=== PATIENT | female | born 1990 | race Caucasian/White ===

== ENCOUNTER 2023-04-22 09:47 | Inpatient (IN) ==
[2023-04-22] MEDS ORDERED: LIDOCAINE 1% LOCAL 20 ML VIAL INFIL PRN (10:49)
[2023-04-22] MEDS ORDERED: OXYTOCIN 30 UNITS/NSS 30 UNITS/500 ML BAG IV PRN (10:49)
--- NOTE | 2023-04-22 10:52 | History & Physical Report ---
Date of Service April 22, 2023 Assessment & Plan (1) Delayed delivery after SROM (spontaneous rupture of membranes): (2) with 39 completed weeks gestation: Plan term , prolonged rom--must assume she has been ruptured since 5pm last night. admit. Recommend commence with pitocin as rom x 18 hours. She is agreeable. The longer ruptured and not delivered, the higher the risk of infection. Fetus category one. epidural on demand. anticipate . History of Present Illness Chief Complaint: lof Primary Care Provider: Emilie Queen DO Patient is a 33yowf with iup at 39 0/7 weeks. She noted that she thinks she started leaking last night around 5pm, just felt wet, intermittent small gush. Notes much larger gushes this am, awoke with soaked underwear. Has not really noted contractions. No vb. +fm. Patient admits that she is anxious. her bp is a little elevated on admission. She denies s/s of pet at present. and Delivery Plans h/o infertility *conceived spontaneously OB Labs: Blood Type O Positive 09/18/22 Antibody Screen NEGATIVE 09/18/22 Hemoglobin 12.4 g/dl (12.0-16.0) 02/05/23 Hematocrit 36.2 % (37.0-47.0) L 02/05/23 Mean Corpuscular Volume 93.5 fL (80.0-100.0) 09/18/22 Platelet Count 248 K/uL (130-400) 09/18/22 Varicella-Zoster IgG Antibody 1994.00 index 03/19/22 Rubella IgG Antibody Immune (Immune) 09/18/22 Rapid Plasma Reagin Nonreactive (Nonreactive) 09/18/22 Hepatitis B Surface Antigen. NON-REACTIVE (NON-REACTIVE) 09/18/22 Hepatitis C Antibody (EIA) NON-REACTIVE (NON-REACTIVE) 09/18/22 HIV (1&2) Ag and Ab Confirmation NON-REACTIVE (NON-REACTIVE) 09/18/22 Glucose 1 Hour 50 gm Load 100 mg/dl (70-130) 02/05/23 Maternal Serum Alpha Fetoprotein 32.9 ng/mL 11/13/22 OB Optional Labs: Chlamydia trachomatis RNA Not Detected (NotDetected) 09/18/22 Neisseria gonorrhoeae RNA Not Detected (NotDetected) 09/18/22 Thyroid Stimulating Hormone (TSH) 2.14 uIU/mL (0.30-4.50) 10/21/21 Alpha Fetoprotein Triple Screen SEE NOTE 11/13/22 Labs Reviewed: Horizon 14-negative--mln cfdna-low risk--mln neg afp--akh gbs neg Allergies Allergy/AdvReac Type Severity Reaction Status Date / Time No Known Allergies Allergy Verified 04/16/23 08:51 Home Medications Medication Instructions Recorded Confirmed Type 21-iron fu-folic acid PO 09/11/22 04/16/23 History [ Complete] RSV vac, preF A and preF B(PF) 120 0.5 ml IM ONCE #1 ea 03/09/23 04/16/23 Rx mcg/0.5 mL IM solution (Abrysvo) Patient History Medical History Human papilloma virus Mild dysplasia of cervix (SUSI I) Cat scratch fever History of chicken pox Surgical History S/P lymph node biopsy r/t cat scratch fever S/P wisdom tooth extraction S/P inguinal hernia repair x2 Family History Aunt Breast cancer Other Prostate cancer Denies family history of Ovarian cancer Myocardial infarction Colorectal cancer Social History Smoking Status: Never smoker Second Hand Exposure: No; Do You Dip or Chew Tobacco: No; Hx Alcohol Use: No Hx Substance Use: No Preferred Language: Brazilian Communication Ability: Effective Courtroom Deputy Required: No Beliefs That Will Affect Care: None marital status: marital status details: Delano Sherwood (45) [phone] Current Living Situation: Spouse Current Living Situation Comment: lives with spouse, dogs current occupational status: employed current occupation: [employer] Other Information That Helps Us Care for You: No Feels Safe at Home: Yes Safety Concerns: Feels Safe At This Time Childhood Exposure to Second-Hand Smoke: No Dental Care, Regularly: Yes Physical Activity Frequency: 5-6 Times per Week Seatbelt Use: always Sunscreen Use: Yes Assistive Devices: None OB History g1--present [employer] History noncontributory Physical Exam Constitutional: WD/WN, vitals as above Gastrointestinal (Abdomen): soft, nt, nd, gravid, no ruq pain Psychiatric: A+Ox3, euthymic affect Genitourinary: sse--grossly ruptured, clear fluid cx--1+/50/-2/mid/mod toco--occasional contraction efm--130s with mod variability, accels to 170s, no decels Results & Data Vital Signs (Past 12 Hours) Vital Signs Temp Pulse Resp BP 04/22/23 10:44 82 141/92 H 04/22/23 10:36 83 136/92 04/22/23 10:14 93 H 137/95 04/22/23 10:02 37.3 C 78 16 142/90 H 04/22/23 09:58 78 142/90 H Coding Level of Care Code None Diagnoses Delayed delivery after SROM (spontaneous rupture of membranes) O42.90 with 39 completed weeks gestation Z3A.39
[2023-04-22] MEDS: LACTATED RINGER'S 1,000 ML IV PRN (11:25)
[2023-04-22 11:53] LABS: Hematocrit (blood only) 38.5 % (37.0-47.0); Mean Corpuscular Hemoglobin 31.1 pg (25.0-34.0); Mean Corpuscular Hgb Conc 33.8 g/dL (32.0-36.0); Mean Corpuscular Volume 92.1 fL (80.0-100.0); Mean Platelet Volume 13.5 fL (9.4-12.4); Platelet Count 134 K/uL (130-400); RDW Standard Deviation 43.4 fL (36.4-46.3); Red Blood Count 4.18 M/uL (4.20-5.40); White Blood Count 6.69 K/ul (4.8-10.8)
[2023-04-22] MEDS: OXYTOCIN 30 UNITS/NSS 30 UNITS/500 ML BAG IV PRN (11:57)
[2023-04-22 12:06] LABS: Albumin Globulin Ratio 1.2 (0.9-2); Albumin Level 3.6 gm/dl (3.4-5.0); BUN Creatinine Ratio 11.8 (10-20); Bilirubin,Total 0.4 mg/dl (0.2-1.0); Calcium 8.9 mg/dl (8.6-10.3); Creatinine Clr Calc Pharmacy 95.1 ml/min; Est GFR (African American) 93.6 ml/min; Est GFR (Non-African American) 80.8 ml/min; Globulin 3.1 gm/dl (2.5-4.0); Potassium 4.2 mmol/L (3.5-5.1); Total Protein 6.7 gm/dl (6.0-8.3)
--- NOTE | 2023-04-22 21:28 | Labor Progress Brief Note ---
Date of Service April 22, 2023 Subjective Getting uncomfortable with contractions. rectal pressure Assessment & Plan (1) with 39 completed weeks gestation: (2) Delayed delivery after SROM (spontaneous rupture of membranes): Plan will get epidural and arom. fetus category one. Admission and Anticipated Discharge Date Admission Date: April 22, 2023 Physical Exam Physical Exam: cx--4/100/-1 toco--q2-3min, pit at 20 efm--125 with mod variabilty, accels to 160s, no decels Results & Data Vital Signs (Past 12 Hours) Vital Signs Temp Pulse Resp BP 04/22/23 21:04 76 18 144/87 H 04/22/23 20:01 66 18 158/84 H 04/22/23 19:07 36.6 C 64 18 143/88 H 04/22/23 18:00 36.6 C 04/22/23 18:00 36.6 C 04/22/23 18:00 62 141/87 H 04/22/23 17:59 64 152/94 H 04/22/23 17:00 73 121/77 04/22/23 16:00 36.7 C 04/22/23 16:00 18 04/22/23 16:00 36.7 C 18 04/22/23 16:00 18 04/22/23 16:00 36.7 C 18 04/22/23 15:59 81 133/87 04/22/23 14:59 74 141/88 H 04/22/23 14:01 70 142/86 H 04/22/23 14:00 37.0 C 04/22/23 13:17 73 136/85 04/22/23 12:03 36.5 C 76 135/85 04/22/23 10:44 82 141/92 H 04/22/23 10:36 83 136/92 04/22/23 10:14 93 H 137/95 04/22/23 10:02 37.3 C 78 16 142/90 H 04/22/23 09:58 78 142/90 H Coding Level of Care Code None Diagnoses with 39 completed weeks gestation Z3A.39 Delayed delivery after SROM (spontaneous rupture of membranes) O42.90
--- NOTE | 2023-04-22 21:55 | Anesthesiology Consultation ---
Date of Service April 22, 2023 Assessment & Plan Chart Review Chart Review: Patient NOT seen in Pre Admission Testing and Acceptable Risk for Labor Epidural Consults Requested none ASA ASA2 Proposed Anesthesia Anesthesia Type: Labor Epidural Risk / Benefits Reviewed With: PT / POA / Parent / Guardian, Accepts Plan and Informed Consent Obtained History Height/Weight Height: 5 ft 7 in Weight: 82.554 kg Allergies Allergy/AdvReac Type Severity Reaction Status Date / Time No Known Allergies Allergy Verified 04/16/23 08:51 Medications Home Medications Medication Instructions Recorded Confirmed Last Taken vits no.124-ferrous fum 1 tab PO DAILY 04/22/23 04/22/23 Unknown 27 mg iron-folic acid 800 mcg tablet ( Vitamin) Active Medications Generic Name Dose Route Start Last Admin Trade Name Freq PRN Reason Stop Dose Admin Lactated Ringer's 1,000 mls @ 125 mls/hr 04/22/23 10:49 04/22/23 21:25 Lr IV 04/24/23 10:48 999 mls/hr .Q8H PRN Infusion L&D Protocol Protocol Oxytocin 30 units in 500 mls @ 20 mls/hr 04/22/23 10:57 04/22/23 19:40 Pitocin 30 Units/Nss IV 04/24/23 10:56 1.2 units/hr .Q24H PRN 20 mls/hr Labor Induction/Augmentation Titration Protocol 1.2 UNITS/HR NPO Date Last Intake of Fluids: 04/22/23 Time Last Intake of Fluids: 21:00 Date Last Intake of Solids: 04/22/23 Time Last Intake of Solids: 15:00 Past Medical History Medical History Human papilloma virus Mild dysplasia of cervix (SUSI I) Cat scratch fever History of chicken pox Exercise / Class Metabolic Activity II 4-5 Yardwork/Stairs/Walk up hill Past Family History Family History Aunt Breast cancer Other Prostate cancer Denies family history of Ovarian cancer Myocardial infarction Colorectal cancer Past Surgical History Surgical History S/P lymph node biopsy r/t cat scratch fever S/P wisdom tooth extraction S/P inguinal hernia repair x2 Past Anesthesia History No Hx of Anesthesia Complications and No Family Hx of Anesthesia Complications Social History Smoking Status: Never smoker Do You Dip or Chew Tobacco: No Hx Alcohol Use: No Hx Substance Use: No Review of Systems ROS Unobtainable: All systems reviewed & are unremarkable except as noted in HPI & below Physical Exam Vital Signs Last Vital Signs Temp 36.6 C 04/22/23 19:07 Pulse 76 04/22/23 21:04 Resp 18 04/22/23 21:04 BP 144/87 H 04/22/23 21:04 ENMT Mouth: no TMJ abnormality Thyromental Distance: > or= 3.5 Finger Breadths Mallampati Class: II Neck normal visual inspection and trachea midline; neck extension not limited Respiratory normal respiratory effort Auscultation: lungs clear to auscultation bilaterally Cardiovascular Rate/Rhythm: regular rate and regular rhythm Heart Sounds: no murmur Musculoskeletal Spine: normal cervical ROM Extremities: full ROM of extremities Neurologic moves all extremities Psychiatric Orientation: alert and oriented x 3 Testing Laboratory Results 04/22/23 11:17 04/22/23 11:17
[2023-04-22] MEDS: BUPIVACAINE 0.25% PF 30 ML VIAL ONE (22:10)
[2023-04-22] MEDS: fentANYL 2 MCG/ML BUPIVacaine 0.125%-NSS 100ML BAG ONE (22:10)
[2023-04-22] MEDS: LIDOCAINE 2%/EPINEPHRINE 1:200,000 20 ML PF ONE (22:10)
[2023-04-22] MEDS: fentaNYL citrate PF 100 MCG/2 ML VIAL ONE (22:12)
[2023-04-22] MEDS ORDERED: NALOXONE HCL 0.4 MG/1 ML VIAL/CARP IV PRN (22:17)
[2023-04-22] MEDS ORDERED: SODIUM CHLORIDE 0.9% PF INJ 10 ML VIAL EPI STA (22:17)
[2023-04-22] MEDS ORDERED: LIDOCAINE 2% MPF LOCAL 5 ML VIAL EPI PRN (22:17)
[2023-04-22] MEDS ORDERED: fentaNYL citrate PF 100 MCG/2 ML VIAL EPI PRN (22:17)
[2023-04-22] MEDS ORDERED: LIDOCAINE 2%/EPINEPHRINE 1:200,000 20 ML PF EPI STA (22:17)
[2023-04-22] MEDS ORDERED: BUPIVACAINE 0.25% PF 30 ML VIAL EPI PRN (22:17)
[2023-04-22] MEDS ORDERED: SODIUM CHLORIDE 0.9% PF INJ 10 ML VIAL EPI PRN (22:17)
[2023-04-22] MEDS ORDERED: fentaNYL citrate PF 100 MCG/2 ML VIAL EPI STA (22:17)
[2023-04-22] MEDS ORDERED: ROPIVACAINE 0.5% PF 5 MG/ML 20 ML VIAL EPI PRN (22:17)
[2023-04-22] MEDS ORDERED: fentANYL 2 MCG/ML BUPIVacaine 0.125%-NSS 100ML BAG EPI PRN (22:17)
[2023-04-22] MEDS ORDERED: NALBUPHINE HCL 5 MG in SYRINGE 0 ML IV PRN (22:17)
[2023-04-22] MEDS ORDERED: ePHEDrine sulfate 50 MG/ML AMP IV PRN (22:17)
[2023-04-22] MEDS ORDERED: BUPIVACAINE 0.25% PF 30 ML VIAL EPI STA (22:17)
[2023-04-22] MEDS ORDERED: diphenhydrAMINE 50 MG/ML VIAL IV PRN (22:17)
[2023-04-22] MEDS ORDERED: NALOXONE HCL 1 MG in SODIUM CHLORIDE 0.9% 1,000 ML IV PRN (22:17)
--- NOTE | 2023-04-22 23:09 | Labor Progress Brief Note ---
Date of Service April 22, 2023 Subjective comfortable with epidural Assessment & Plan (1) with 39 completed weeks gestation: (2) Delayed delivery after SROM (spontaneous rupture of membranes): Plan making excellent progress. fetus category one. anticipate . Admission and Anticipated Discharge Date Admission Date: April 22, 2023 Physical Exam Physical Exam: cx--8/100/0 toco--q2-3min, pit at 20 efm--120s with mod variability, accels present, no decels Results & Data Vital Signs (Past 12 Hours) Vital Signs Temp Pulse Resp BP Pulse Ox 04/22/23 23:05 87 108/62 97 04/22/23 23:00 71 95 04/22/23 22:55 72 96 04/22/23 22:50 73 95 04/22/23 22:49 69 109/66 04/22/23 22:45 65 95 04/22/23 22:44 69 93 04/22/23 22:40 67 95 04/22/23 22:35 65 95 04/22/23 22:34 68 100/62 04/22/23 22:32 65 94 04/22/23 22:30 56 L 96 04/22/23 22:28 68 112/69 04/22/23 22:25 71 96 04/22/23 22:24 72 112/78 04/22/23 22:22 68 94 04/22/23 22:20 71 96 04/22/23 22:17 69 04/22/23 22:17 68 113/70 94 04/22/23 22:15 71 04/22/23 22:15 69 111/70 95 04/22/23 22:13 68 108/67 04/22/23 22:11 68 114/71 04/22/23 22:10 78 115/70 97 04/22/23 22:07 70 109/64 04/22/23 22:06 85 92 04/22/23 22:05 74 97 04/22/23 22:00 71 99 04/22/23 21:56 68 18 149/87 H 04/22/23 21:55 71 98 04/22/23 21:04 36.6 C 76 18 144/87 H 04/22/23 20:01 66 18 158/84 H 04/22/23 19:07 36.6 C 64 18 143/88 H 04/22/23 18:00 36.6 C 04/22/23 18:00 36.6 C 04/22/23 18:00 62 141/87 H 04/22/23 17:59 64 152/94 H 04/22/23 17:00 73 121/77 04/22/23 16:00 36.7 C 04/22/23 16:00 18 04/22/23 16:00 36.7 C 18 04/22/23 16:00 18 04/22/23 16:00 36.7 C 18 04/22/23 15:59 81 133/87 04/22/23 14:59 74 141/88 H 04/22/23 14:01 70 142/86 H 04/22/23 14:00 37.0 C 04/22/23 13:17 73 136/85 04/22/23 12:03 36.5 C 76 135/85 Coding Level of Care Code None Diagnoses with 39 completed weeks gestation Z3A.39 Delayed delivery after SROM (spontaneous rupture of membranes) O42.90
[2023-04-22] MEDS: ePHEDrine sulfate 50 MG/ML AMP ONE (23:26)
[2023-04-22] MEDS: SODIUM CHLORIDE 0.9% PF INJ 10 ML VIAL ONE (23:27)
--- NOTE | 2023-04-23 00:47 | Delivery Summary ---
Vaginal Delivery Summary Date of Service April 23, 2023 Vaginal Delivery Summary (bilateral labial lacerations.) Pre-operative Diagnosis: at 39 weeks pprom Post-operative Diagnosis: same Procedure: pitocin augmentation epidural bilateral labial lacerations and repair EBL: 300cc Anesthesia: epidural Procedure: Patient presented to labor and delivery with prolonged rom at 18 hours. PItocin started. The patient progressed to 4cm, had epidural. At 8cm had rom of forebag. The patient pushed for 10 minutes to deliver a viable female in markus position. The nose and mouth were bulb suctioned on the perineum and the rest of the infant was then delivered without difficulty. The baby was vigorous. The nose and mouth were again bulb suctioned and the infant was placed in the maternal abdomen for drying and attention. Cord was clamped and cut at one minute of life. Cord blood and segment obtained. Placenta delivered spontaneous, intact with a three vessel cord. Cervix/sulci/rectum were intact. Bilateral labial lacerations was repaired in the normal standard fashion. Hemostasis obtained with dilute pitocin and fundal massage. Apgars were 9/9. Mother and baby doing well at the end of the delivery. [facility] Vaginal Delivery Charge Delivery Type Details: (bilateral labial lacerations.)
[2023-04-23] MEDS ORDERED: HYDROCORTISONE ACETATE 25 MG SUPP PR PRN (00:54)
[2023-04-23] MEDS ORDERED: bisacodyL 10 MG SUPP PR PRN (00:54)
[2023-04-23] MEDS ORDERED: ACETAMINOPHEN 325 MG TAB PO PRN (00:54)
[2023-04-23] MEDS ORDERED: oxyCODONE/ACETAMINOPHEN 5mg/325mg TAB PO PRN (00:54)
[2023-04-23] MEDS ORDERED: BENZOCAINE 20% SPRY 85 APPLN/85 GM CAN EXT PRN (00:54)
[2023-04-23] MEDS ORDERED: OXYTOCIN 30 UNITS/NSS 30 UNITS/500 ML BAG IV PRN (00:54)
[2023-04-23 07:14] LABS: Hematocrit (blood only) 31.6 % (37.0-47.0); Hemoglobin 10.8 g/dl (12.0-16.0)
--- NOTE | 2023-04-23 07:30 | Anesthesia Procedure Note ---
Date of Service April 23, 2023 Anesthesia Post Epidural Note Vital Signs Vital Signs: Temp Pulse Resp BP Pulse Ox 98.1 F 69 18 124/82 95 04/23/23 05:00 04/23/23 05:00 04/23/23 05:00 04/23/23 05:00 04/23/23 00:40 Notes Mental Status: alert / awake / arousable and participated in evaluation Nausea / Vomiting: adequately controlled Pain: adequately controlled Airway Patency, RR, SpO2: stable & adequate BP & HR: stable & adequate Hydration State: stable & adequate Neuraxial Anesthesia: was administered and sensory block is resolving Anesthetic Complications: no major complications apparent and Pt Satisfied with anesthetic care Epidural: Removed without complications and With tip intact
[2023-04-23] MEDS: PRENATAL VITAMIN 1 TAB PO SCH (07:40)
[2023-04-23] MEDS: DOCUSATE SODIUM 100 MG CAP PO SCH (07:40)
[2023-04-23] MEDS: IBUPROFEN 600 MG TAB PO PRN (10:58)
[2023-04-23 13:37] LABS: Hemoglobin 10.8 g/dl (12.0-16.0); Mean Corpuscular Hemoglobin 32.4 pg (25.0-34.0); Mean Corpuscular Hgb Conc 34.8 g/dL (32.0-36.0); Mean Corpuscular Volume 93.1 fL (80.0-100.0); Mean Platelet Volume 13.1 fL (9.4-12.4); Platelet Count 116 K/uL (130-400); RDW Coefficient of Variation 13.1 % (11.5-14.5); RDW Standard Deviation 44.1 fL (36.4-46.3); Red Blood Count 3.33 M/uL (4.20-5.40)
[2023-04-23 13:52] LABS: Albumin Globulin Ratio 1.3 (0.9-2); Albumin Level 2.9 gm/dl (3.4-5.0); BUN Creatinine Ratio 11.9 (10-20); Bilirubin,Total 0.5 mg/dl (0.2-1.0); Calcium 8.6 mg/dl (8.6-10.3); Creatinine Clr Calc Pharmacy 87.5 ml/min; Est GFR (African American) 84.7 ml/min; Est GFR (Non-African American) 73.1 ml/min; Globulin 2.2 gm/dl (2.5-4.0); Potassium 3.9 mmol/L (3.5-5.1); Total Protein 5.1 gm/dl (6.0-8.3)
--- NOTE | 2023-04-23 17:32 | Obstetrical Progress Note ---
Date of Service April 23, 2023 Assessment & Plan (1) Preeclampsia: Plan Labs checked at time of elevated BP x2 this morning. Cr was already 0.92 on first check and now slightly over 1. Plts were 130s, now 116. However, since the time of the blood draw, her BP has normalized without any treatment (currently 120/83), and her symptom of mild JIMÉNEZ is gone, with no other symptoms to report. Discussed likely *had* preeclampsia, and is now resolving, though need to be keenly aware of possible future recrudescence. Will check hourly BP until bedtime tonight then decide how frequently to go through the night. Labs in the AM, or sooner if BP re-elevates. For now, no antihypertensives, and will hold off Mag. Admission and Anticipated Discharge Date Admission Date: April 22, 2023 Subjective Patient beginning a session when I met her in 411, with Fanny RN at bedside. Denies JIMÉNEZ, RUQ pain or Vis chg. Did have a mild JIMÉNEZ earlier this morning coinciding with her high BPs, however that resolved already. No current complaints, feeling "great." Physical Exam Physical Exam: NAD, sitting upright, attempting . Abdominal exam limited to noting a postgravid appearance as patient occupied during my visit. Results & Data Vital Signs (Past 12 Hours) Vital Signs Temp Pulse Resp BP Pulse Ox O2 Del Method 04/23/23 15:38 98.1 F 88 16 120/83 95 Room Air 04/23/23 14:20 122/80 04/23/23 13:20 131/85 04/23/23 12:15 142/90 H 04/23/23 11:00 98.1 F 80 14 147/95 H 96 Room Air 04/23/23 07:45 99.0 F 73 16 136/91 99 Room Air Laboratory Results Laboratory Results - last 24 hr 04/23/23 04/23/23 06:44 13:17 WBC 8.50 RBC 3.33 L Hgb 10.8 L 10.8 L Hct 31.6 L 31.0 L MCV 93.1 MCH 32.4 MCHC 34.8 RDW Std Deviation 44.1 RDW Coeff of Lulu 13.1 Plt Count 116 L MPV 13.1 H Sodium 137 Potassium 3.9 Chloride 108 H Carbon Dioxide 24 Anion Gap 5 BUN 12 Creatinine 1.01 Est Cr Clr Drug Dosing 87.5 Est GFR ( Amer) 84.7 Est GFR (Non-Af Amer) 73.1 BUN/Creatinine Ratio 11.9 Glucose 114 H Calcium 8.6 Total Bilirubin 0.5 AST 31 ALT 13 Alkaline Phosphatase 193 H Total Protein 5.1 L D Albumin 2.9 L Globulin 2.2 L Albumin/Globulin Ratio 1.3 PG Care Time/CCT Total # of Minutes Spent Total Time Spent with Patient: Total time spent is greater than 50% in coordination of care (as documented) at patient's floor/unit and/or counseling patient: Coding Level of Care Code None Diagnoses Preeclampsia O14.90
[2023-04-24] MEDS: DIPHTHER/TETAN/PERTUS Vaccine (Tdap, Adol/Adult) 0.5mL IM ONE (05:11)
--- NOTE | 2023-04-24 05:44 | Obstetrical Progress Note ---
Date of Service April 24, 2023 Assessment & Plan (1) (normal spontaneous vaginal delivery): Plan 33 yo , status post on 04/23/23 - Pt doing well clinically. Feels well today. Eating well, voiding well, ambulating well. Pain well controlled with PRN pain meds. - Routine care -- OOB, ambulation, diet progression as tolerated Vital Signs reviewed and WNL. (Tmax at 37.2). All BP's normotensive since a few hypertensive readings w/ SBP's in 140s yesterday. Hemoglobin Reviewed. 13.0 (04/21) 10.8 (yesterday). Blood Type: O+, GBS-, Rubella Immune. Encourage ambulation, monitor and control pain with Motrin PRN, resume regular diet, monitor lochia. Breast feeding encouraged. After discharge will have 6 week follow-up with Dr. Ballard. Pt counselled on discharge instructions, in the event they want to go home today. Subjective Ambulation: ambulating normally Voiding: no voiding problems Passing Gas:: Yes Diet Tolerance:: regular diet Lochia:: Small Feeding Type:: breast feeding (along w/ pumping and storing in bottles) Current Pain Level(1-10): 1 (breast/nipple tenderness w/ breast feeding) Constitutional: no fever, no chills or no weakness Ear, Nose, Mouth, Throat: no nasal congestion, no nasal discharge or no sore throat Respiratory: no cough, no chest congestion or no dyspnea Cardiovascular: no chest pain or no palpitations Gastrointestinal: no abdominal pain, no nausea, no vomiting or no diarrhea/loose stools Genitourinary (female): no dysuria or no urinary frequency Neurologic: no tingling, no numbness or no headache(s) Physical Exam Constitutional WD/WN, vitals as above Respiratory normal respiratory effort, lungs clear to auscultation Cardiovascular RRR, no murmur, no edema Extremities: normal capillary refill; no calf tenderness and no pedal edema Gastrointestinal (Abdomen) normal bowel sounds, soft, nontender, no hepatosplenomegaly Psychiatric A+Ox3, euthymic affect Results & Data Vital Signs (Past 12 Hours) Vital Signs Temp Pulse Resp BP Pulse Ox O2 Del Method 04/24/23 03:00 36.5 C 70 18 116/74 98 Room Air 04/24/23 01:15 36.8 C 77 18 117/97 96 Room Air 04/23/23 20:00 37.2 C 78 16 122/85 97 Room Air 04/23/23 18:36 126/83
[2023-04-24 08:30] LABS: Hematocrit (blood only) 29.8 % (37.0-47.0); Hemoglobin 10.3 g/dl (12.0-16.0); Mean Corpuscular Hemoglobin 32.1 pg (25.0-34.0); Mean Corpuscular Hgb Conc 34.6 g/dL (32.0-36.0); Mean Corpuscular Volume 92.8 fL (80.0-100.0); Mean Platelet Volume 13.3 fL (9.4-12.4); Platelet Count 116 K/uL (130-400); RDW Coefficient of Variation 13.4 % (11.5-14.5); RDW Standard Deviation 45.1 fL (36.4-46.3); Red Blood Count 3.21 M/uL (4.20-5.40); White Blood Count 8.52 K/ul (4.8-10.8)
[2023-04-24 08:42] LABS: Albumin Globulin Ratio 1.3 (0.9-2); Albumin Level 2.9 gm/dl (3.4-5.0); BUN Creatinine Ratio 16.9 (10-20); Bilirubin,Total 0.4 mg/dl (0.2-1.0); Creatinine Clr Calc Pharmacy 106.5 ml/min; Est GFR (African American) 107.4 ml/min; Est GFR (Non-African American) 92.7 ml/min; Globulin 2.2 gm/dl (2.5-4.0); Potassium 3.9 mmol/L (3.5-5.1); Total Protein 5.1 gm/dl (6.0-8.3)
[2023-04-24] MEDS ORDERED: bisacodyL 5 MG TABEC PO SCH (20:00)
--- NOTE | 2023-04-26 11:23 | Coding Query ---
CODING QUERY To promote full compliance with coding requirements relating to patient care, provider participation is requested in all cases of vice president of communications uncertainty. Please assist us with the question(s) below: Coding Question(s): Delivery Summary states bilateral labial tears with repair. Please clarify level of tear/laceration so that the appropriate dx/px codes can be added. Physician's Response(s): I am unaware of a level that can be assigned to a labial tear. They are superficial tears to the inner labia minora. Please tiger txt if you need more info. Thank you Adrienne Hand Principal Diagnosis: "that condition established after study, to be chiefly responsible for occasioning the admission of the patient to the hospital for care." Co-Existing Principal Diagnosis: "when two or more diagnoses equally meet the criteria for principal diagnosis as determined by the circumstances of admission, diagnostic work up, and/or therapy provided, and the Alphabetic Index, Tabular List, or another coding guideline does not provide sequencing direction, any one of the diagnoses may be sequenced first." "When the physician has documented what appears to be a current diagnosis in the body of the record, but has not included the diagnosis in the final diagnostic statement, the physician should be asked whether the diagnosis should be added." (Source [facility]oding [facility] 2 QTR90. p3-4) KALEY
== END 2023-04-24 11:40 | disposition home or self-care (01) | DRG 807 ==
LOC: 4S1 09:47 → OPB 09:47 → 4S1 09:50 → 4E2 04-23 05:09